=== PATIENT | female | born 1995 | race Two or more races ===

== ENCOUNTER 2016-09-11 23:32 | Emergency (ER) | payer MEDICAID ==
[2016-09-12 03:21] VITALS: BP 139/85
== END 2016-09-12 03:21 | disposition other institution (70) ==
LOC: ED 23:32
DX: S09.90XA Unspecified injury of head, initial encounter (principal); G40.909 Epilepsy, unspecified, not intractable, without status epilepticus; W18.30XA Fall on same level, unspecified, initial encounter; Y93.89 Activity, other specified; Y92.89 Other specified places as the place of occurrence of the external cause; Y99.8 Other external cause status

== ENCOUNTER 2016-09-11 23:32 | Emergency (ER) | payer OTHER | END 2016-09-12 03:21 | disposition other institution (70) | LOC: ED 23:32 | DX: Z02.89 Encounter for other administrative examinations (principal) ==